=== PATIENT | male | born 1995 | race Caucasian/White ===

== ENCOUNTER 2017-07-07 04:07 | Emergency (ER) | payer BC, OTHER ==
[2017-07-07 04:21] VITALS: BP 134/85; PULSE 68; TEMP 97.3; BMI 25.0
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
== END 2017-07-07 04:51 | disposition home or self-care (01) ==
LOC: JER 04:07
DX: Z77.21 Contact with and (suspected) exposure to potentially hazardous body fluids (principal); Y35.891A Legal intervention involving other specified means, law enforcement official injured, initial encounter; Y93.89 Activity, other specified; Y92.89 Other specified places as the place of occurrence of the external cause; Y99.0 Civilian activity done for income or pay
CPT/HCPCS: 99282-25

== ENCOUNTER 2017-07-30 03:35 | Emergency (ER) | payer OTHER ==
[2017-07-30 03:55] VITALS: BP 160/72; PULSE 87; BMI 25.0
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
--- NOTE | 2017-07-30 04:17 | PDOC ---
*Physical Exam - Vital Signs Last Vital Signs Temp Pulse Resp BP Pulse Ox 87 14 160/72 99 07/30/17 03:47 07/30/17 03:47 07/30/17 03:47 07/30/17 03:47 Medical Decision Making - Medical Decision Making 07/30/17 04:15 Pt seen by the Advanced Practice Provider under my direct supervision Ancillary studies reviewed I agree with plan as outlined by the Advanced Practice Provider *DC/Admit/Observation/Transfer Diagnosis at time of Disposition: Tinnitus of both ears - Referrals Referrals: Yamilet Pulido MD [Primary Care Provider] - Emil Salcido MD [Staff Physician] - - Patient Instructions Printed Discharge Instructions: Ringing in the Ears, DI for Tinnitus Additional Instructions: Please follow up with your primary care doctor or the ENT this week if your symptoms persist for more than 2-3 days. Please return to the ER for any new, worsening, or concerning symptoms. - Post Discharge Activity
== END 2017-07-30 04:38 | disposition home or self-care (01) ==
LOC: JER 03:35
DX: H93.13 Tinnitus, bilateral (principal); X58.XXXA Exposure to other specified factors, initial encounter; Y35.91XA Legal intervention, means unspecified, law enforcement official injured, initial encounter; Y93.89 Activity, other specified; Y92.410 Unspecified street and highway as the place of occurrence of the external cause
CPT/HCPCS: 99281-25

== ENCOUNTER 2018-02-18 21:01 | Emergency (ER) | payer OTHER ==
[2018-02-18 21:23] VITALS: BP 126/81; PULSE 77; TEMP 98.2; BMI 25.0
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
== END 2018-02-18 21:40 | disposition home or self-care (01) ==
LOC: JER 21:01
DX: S83.8X1A Sprain of other specified parts of right knee, initial encounter (principal); Y35.811A Legal intervention involving manhandling, law enforcement official injured, initial encounter; Y93.89 Activity, other specified; Y92.89 Other specified places as the place of occurrence of the external cause; Y99.0 Civilian activity done for income or pay
CPT/HCPCS: 99281-25

== ENCOUNTER 2018-08-16 18:53 | Emergency (ER) | payer OTHER ==
[2018-08-16 18:58] VITALS: BP 117/79; PULSE 85; TEMP 98.6; BMI 25.0
[2018-08-16] MEDS ORDERED: IBUPROFEN 400 MG TABLET (FP) PO ONE ×2 (19:10)
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
== END 2018-08-16 19:52 | disposition home or self-care (01) ==
LOC: JERFT 18:53
DX: M79.641 Pain in right hand (principal); M79.631 Pain in right forearm; Y35.811A Legal intervention involving manhandling, law enforcement official injured, initial encounter; Y93.89 Activity, other specified; Y92.89 Other specified places as the place of occurrence of the external cause; Y99.0 Civilian activity done for income or pay
CPT/HCPCS: 73090-TC-RT-FY; 73110-TC-RT-FY; 73130-TC-RT-FY; 99281-25

== ENCOUNTER 2019-04-15 22:48 | Emergency (ER) | payer OTHER | END 2019-04-15 23:41 | disposition home or self-care (01) | LOC: JER 22:48 ==

== ENCOUNTER 2019-07-22 23:49 | Emergency (ER) | payer OTHER ==
[2019-07-23 00:09] VITALS: BP 110/65; PULSE 66; TEMP 98; BMI 25.0
--- NOTE | 2019-07-23 00:26 | PDOC ---
History of Present Illness - General Chief Complaint: Back Pain Stated Complaint: LOWER BACK PAIN Time Seen by Provider: 07/23/19 00:21 Past History - Past Medical History Allergies/Adverse Reactions: Allergies Allergy/AdvReac Type Severity Reaction Status Date / Time No Known Allergies Allergy Verified 04/15/19 22:54 Home Medications: Ambulatory Orders Aspirin [ASA -] 81 mg PO DAILY 10/11/16 Cyclobenzaprine HCl [Flexeril 10 mg] 5 mg PO TID PRN #5 tablet 07/23/19 Lidocaine 5% Patch [Lidoderm -] 1 patch TP DAILY #7 patch 07/23/19 Cardiac Disorders: Yes (Patent Foramen Ovale) COPD: No - Immunization History Immunization Up to Date: Yes - Suicide/Smoking/Psychosocial Hx Smoking History: Never smoked Have you smoked in the past 12 months: No Hx Alcohol Use: No Drug/Substance Use Hx: No Substance Use Type: None *Physical Exam - Vital Signs Last Vital Signs Temp Pulse Resp BP Pulse Ox 98.0 F 66 18 110/65 100 07/23/19 00:07 07/23/19 00:07 07/23/19 00:07 07/23/19 00:07 07/23/19 00:07 Medical Decision Making - Medical Decision Making HPI: 24yo M with PMH of PFO, lasik eye surgery presenting with back pain. 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 Has not taken anything so far for pain. He states, "I just want to get it checked out." Certain movements will make his pain worse. Never had back pain like this before. Has never seen an orthopedist. Denies saddle anesthesia, significant weight loss, history of cancer or IVDU, or urinary/fecal incontinence. No fever, chills, or night sweats. ROS: Constitutional: no fever, no chills HEENT: no throat pain, no dysphagia Cardiovascular: no chest pain, no palpitations Respiratory: no cough, no shortness of breath Gastrointestinal: no abdominal pain, no nausea Genitourinary: no dysuria, no hematuria Musculoskeletal: +back pain, no leg pain Skin: no rash, no itching Neurologic: no headache, no weakness PE: General: Awake, alert, and fully oriented, in no acute distress Head: No signs of trauma Eyes: EOMI, sclera anicteric ENT: Moist mucus membranes Neck: Normal ROM, supple Lungs: Lungs clear, Normal breath sounds Cardio: Regular rhythm, S1 and S2 present Abdomen: Soft, nontender. No guarding, no rebound, no masses Extremities: Normal range of motion, Distal pulses present SKIN: Warm, Dry, normal turgor Neurologic: Cranial nerves II through XII grossly intact. Normal speech Tender to palpation along paravertebrals in lumbar area along L2-L3, no midline tenderness, no step-offs/deformities/fluctuance; no overlying wound or lesion; + R. straight leg test; negative L. straight leg test; able to ambulate without difficulty; 2+ patellar reflexes bilaterally; equal strength and sensation bilaterally ED Course/MDM: DDX including but not limited to MSK, muscle spasm, cauda equina, spinal stenosis, nephrolithiasis, UTI, pyelonephritis Motrin, lidocaine patch Patient with no midline tenderness Low suspicion for acute pathology as patient without red flag back pain symptoms or urinary symptoms As patient is driving himself home, we will defer medicines that make him drowsy 07/23/19 00:26 Flexeril, lidocaine patch prescription sent to pharmacy Discharged with return precautions 07/23/19 01:17 *DC/Admit/Observation/Transfer Diagnosis at time of Disposition: Lower back pain Qualifiers: Chronicity: acute Back pain laterality: unspecified Sciatica presence: without sciatica Qualified Code(s): M54.5 - Low back pain - Discharge Dispostion Disposition: HOME Condition at time of disposition: Stable - Prescriptions Prescriptions: Cyclobenzaprine HCl [Flexeril 10 mg] 5 mg PO TID PRN #5 tablet PRN Reason: Back Pain Lidocaine 5% Patch [Lidoderm -] 1 patch TP DAILY #7 patch - Referrals - Patient Instructions Printed Discharge Instructions: DI for Low Back Pain Additional Instructions: You came to the emergency department for back pain. Your pain improved with flexeril and a lidoderm patch. Prescription sent to your pharmacy: Flexeril 5mg three times a day; do not drive or take care of small children while taking this medicine. Lidoderm patch: apply to the affected area, Patch may remain in place for up to 12 hours in any 24-hour period. You can also take [id number] tylenol or motrin for pain. Follow the instructions on the medication bottle. Follow-up with you primary care physician within 72 hours to discuss this ED visit and to further evaluate your back pain. Your care is not complete until you do so. Call and make an appointment. Immediate medical attention is required if you have back pain and : numbness in the genital or rectal area, loss of bowel or bladder control, difficulty with urination; fever, unexplained weight loss, or other signs of illness or infection. If you think you are having an emergency, call for emergency medical - Post Discharge Activity
[2019-07-23] MEDS ORDERED: IBUPROFEN 400 MG TABLET (FP) PO ONE (00:43)
[2019-07-23] MEDS ORDERED: LIDOCAINE 5% TOPICAL PATCH TP ONE (00:43)
--- NOTE | 2019-07-23 00:53 | PDOC ---
Attending Attestation - Resident Resident Name: Mariam Gleason - ED Attending Attestation I have performed the following: I have examined & evaluated the patient, The case was reviewed & discussed with the resident, I agree w/resident's findings & plan - HPI HPI: 07/23/19 00:44 see resident hpi - Physicial Exam PE: 07/23/19 00:44 agree with resident exam - Medical Decision Making 07/23/19 00:44 24 yo male with right low back pain due to injury sustained at work sensorimotor in tact distally will d/c with recommended OP follow up for further eval prn NSAIds/muscle relaxants
[2019-07-23] MEDS ORDERED: IBUPROFEN 600 MG TABLET (FP) PO ONE (00:56)
[2019-07-23] MEDS ORDERED: LIDOCAINE 5% TOPICAL PATCH ONE (00:56)
[2019-07-23] MEDS ORDERED: LIDOCAINE PATCH REMOVAL MC SCH (22:00)
== END 2019-07-23 01:01 | disposition home or self-care (01) ==
LOC: JER 23:49
DX: M54.5 Low back pain (principal); X50.9XXA Other and unspecified overexertion or strenuous movements or postures, initial encounter; Y93.89 Activity, other specified; Y92.89 Other specified places as the place of occurrence of the external cause; Y99.0 Civilian activity done for income or pay
CPT/HCPCS: 99282-25

== ENCOUNTER 2020-07-29 17:30 | Emergency (ER) | payer OTHER ==
[2020-07-29 17:38] VITALS: BP 143/70; PULSE 92; TEMP 98; BMI 25.0
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
[2020-07-29] MEDS ORDERED: ACETAMINOPHEN 325 MG TABLET (FP) PO ONE (17:46)
[2020-07-29] MEDS ORDERED: ACETAMINOPHEN 325 MG TABLET (FP) ONE (17:51)
== END 2020-07-29 18:05 | disposition home or self-care (01) ==
LOC: FER 17:30
DX: H91.13 Presbycusis, bilateral (principal); M25.561 Pain in right knee; S80.211A Abrasion, right knee, initial encounter
CPT/HCPCS: 99284-25

== ENCOUNTER 2021-02-28 21:12 | Emergency (ER) | payer OTHER ==
[2021-02-28 21:20] VITALS: BP 130/66; PULSE 74; TEMP 98.7; BMI 25.0
== END 2021-02-28 22:41 | disposition home or self-care (01) ==
LOC: FER 21:12
DX: T59.91XA Toxic effect of unspecified gases, fumes and vapors, accidental (unintentional), initial encounter (principal)
CPT/HCPCS: 99282-25

== ENCOUNTER 2021-03-02 18:25 | Emergency (ER) | payer OTHER ==
[2021-03-02 18:38] VITALS: BP 112/77; PULSE 72; TEMP 100.1; BMI 24.4
== END 2021-03-02 18:50 | disposition home or self-care (01) ==
LOC: FER 18:25
DX: M25.571 Pain in right ankle and joints of right foot (principal)
CPT/HCPCS: 99281-25

== ENCOUNTER 2021-09-23 20:12 | Emergency (ER) | payer OTHER ==
[2021-09-23 20:17] VITALS: BP 126/87; PULSE 74; TEMP 98.2; BMI 25.0
== END 2021-09-23 21:37 | disposition home or self-care (01) ==
LOC: FER 20:12
DX: S90.31XA Contusion of right foot, initial encounter (principal); S86.219A Strain of muscle(s) and tendon(s) of anterior muscle group at lower leg level, unspecified leg, initial encounter; Y35.811A Legal intervention involving manhandling, law enforcement official injured, initial encounter
CPT/HCPCS: 73630-TC-RT-FY; 99283-25

== ENCOUNTER 2022-06-11 23:18 | Emergency (ER) | payer OTHER, BC ==
[2022-06-11 23:26] VITALS: BP 147/79; PULSE 62; RESP 20; TEMP 98; BMI 25.0
[2022-06-12] MEDS ORDERED: ALPRAZolam 0.25 MG TABLET PO ONE (00:27)
[2022-06-12] MEDS ORDERED: ALPRAZolam 0.25 MG TABLET ONE (00:31)
[2022-06-12] MEDS ORDERED: SODIUM CHLORIDE 1,000 ML IV STA (00:35)
[2022-06-12 00:58] LABS: BASO % 0.5 % (0-2.0); EOS % 0.4 % (0-4.5); HEMATOCRIT 42.1 % (35.4-49); HEMOGLOBIN 14.7 GM/dL (11.7-16.9); LYMPH % 15.9 % (8-40); MCH 29.8 pg (25.7-33.7); MCHC 34.9 g/dl (32.0-35.9); MEAN CELL VOLUME 85.5 fl (80-96); MEAN PLT VOLUME 7.6 fl (7.5-11.1); MONO % 12.5 % (3.8-10.2); NEUT % 70.7 % (42.8-82.8); PLATELET COUNT 258 10^3/uL (134-434); RBC 4.92 M/mm3 (4.00-5.60); WHITE BLOOD COUNT 12.5 K/mm3 (4.0-10.0)
[2022-06-12 01:20] LABS: ALBUMIN 4.4 g/dl (3.4-5.0); BLOOD UREA NITROGEN 6.3 mg/dL (7-18)
[2022-06-12 01:25] LABS: BILIRUBIN,TOTAL 1.3 mg/dL (0.2-1); TOT PROT 7.8 g/dl (6.4-8.2)
== END 2022-06-12 02:01 | disposition home or self-care (01) ==
LOC: FER 23:18
PROC: 3E0337Z Introduction of Electrolytic and Water Balance Substance into Peripheral Vein, Percutaneous Approach (ICD-10-PCS; principal; 2022-06-11)
DX: R07.89 Other chest pain (principal)
CPT/HCPCS: 36415; 80053; 84484; 85025; 93005; 99284-25

== ENCOUNTER 2022-10-02 17:53 | Emergency (ER) | payer OTHER, BC ==
[2022-10-02 18:37] VITALS: BP 119/59; PULSE 74; RESP 20; TEMP 98.2; BMI 25.7
== END 2022-10-02 19:21 | disposition home or self-care (01) ==
LOC: FER 17:53
DX: M54.50 Low back pain, unspecified (principal)
CPT/HCPCS: 99282-25

== ENCOUNTER 2023-06-05 18:59 | Emergency (ER) | payer OTHER, BC ==
[2023-06-05 19:42] VITALS: BP 113/75; PULSE 83; RESP 18; TEMP 98.3; BMI 25.7
[2023-06-05] MEDS ORDERED: LIDOCAINE 5% TOPICAL PATCH TP ONE (20:14)
[2023-06-05] MEDS ORDERED: KETOROLAC TROMETHAMINE 30 MG/1 ML VIAL IM ONE (20:15)
[2023-06-05] MEDS ORDERED: ACETAMINOPHEN 500 MG TABLET (FP) PO ONE (20:15)
[2023-06-05] MEDS ORDERED: KETOROLAC TROMETHAMINE 30 MG/1 ML VIAL ONE (20:25)
[2023-06-05] MEDS ORDERED: LIDOCAINE 5% TOPICAL PATCH ONE (20:25)
[2023-06-05] MEDS ORDERED: ACETAMINOPHEN 500 MG TABLET (FP) ONE (20:26)
[2023-06-05] MEDS ORDERED: LIDOCAINE PATCH REMOVAL MC SCH (22:00)
== END 2023-06-05 21:10 | disposition home or self-care (01) ==
LOC: JERFT 18:59 → JER 18:59 → JERFT 21:10
PROC: 3E0233Z Introduction of Anti-inflammatory into Muscle, Percutaneous Approach (ICD-10-PCS; principal; 2023-06-05)
DX: M54.50 Low back pain, unspecified (principal); V43.52XA Car driver injured in collision with other type car in traffic accident, initial encounter; Y35.811A Legal intervention involving manhandling, law enforcement official injured, initial encounter
CPT/HCPCS: 72100-TC-FY; 99284-25

== ENCOUNTER 2025-06-05 16:33 | Emergency (ER) | payer OTHER, BC ==
[2025-06-05 17:01] VITALS: BP 139/78; PULSE 72; RESP 18; TEMP 98; BMI 25.0
[2025-06-05] MEDS ORDERED: ACETAMINOPHEN 325 MG TABLET (FP) ONE (17:49)
[2025-06-05] MEDS: ACETAMINOPHEN 325 MG TABLET (FP) PO ONE (17:50)
== END 2025-06-05 17:55 | disposition home or self-care (01) ==
LOC: FER 16:33
DX: S90.122A Contusion of left lesser toe(s) without damage to nail, initial encounter (principal); W22.8XXA Striking against or struck by other objects, initial encounter
CPT/HCPCS: 73660-TC-LT-FY; 99283-25